=== PATIENT | male | born 1985 | race Caucasian/White ===

== ENCOUNTER → 2020-05-01 08:03 | Outpatient (CLI) | payer BC, SELFPAY ==
[2020-05-01 23:32] LABS: SARS-CoV-2 RNA PCR Negative
== END ==
PROVIDERS: PCP Family Medicine; Visit Provider Family Medicine
DX: Z20.822 Contact with and (suspected) exposure to COVID-19 (principal); J02.9 Acute pharyngitis, unspecified
CPT/HCPCS: C9803; U0003; U0005

== ENCOUNTER 2020-06-20 11:19 | Outpatient (CLI) | payer BC, SELFPAY ==
--- NOTE | ~2020-06-20 | CT_ITS ---
EXAMINATION: CTA chest PE protocol DATE: 06/20/2020 12:03 INDICATION: Shortness of breath. Tachycardia. TECHNIQUE: Computed tomography (CT) pulmonary angiogram of the chest was performed with 100 mL Omnipa que-350 intravenous contrast. Additional 3D reconstructions utilizing coronal maximum intensity proje ction (MIP) were performed. Automated exposure control and iterative reconstruction technique were em ployed. The dose-length product was 728.87 mGy-cm. COMPARISON: None FINDINGS: Adequate but suboptimal contrast opacification of the pulmonary arteries. There is mild streak artifa ct from dense contrast in the superior vena cava and right atrium. Mild scattered respiratory motion artifact. Overall this only mildly decreases sensitivity in the smaller subsegmental pulmonary arteri es. No pulmonary embolism. Several scattered bilateral small calcified pulmonary nodules consistent w ith old granulomatous disease. No pneumonia, pulmonary edema or other evident lung disease. No pleura l effusion or pneumothorax. Heart size is normal. No pericardial effusion. Thoracic aorta is normal i n caliber with no dissection. No pathologically enlarged thoracic lymphadenopathy. Visualized upper a bdomen is unremarkable. Mild thoracic spondylosis and multiple Schmorl's nodes throughout the mid to lower thoracic spine. IMPRESSION: 1. No pulmonary masses or other acute cardiopulmonary disease. Reviewed, dictated and finalized at location A.
--- NOTE | 2020-06-20 12:02 | ECG_ITS ---
Measurements Intervals [place] Rate: 72 P: 46 GA: 154 QRS: 51 QRSD: 94 T: 49 QT: 375 QTc: 412 Interpretive Statements SINUS RHYTHM NORMAL ECG Electronically Signed On 06-20-2020 12:12:43 CDT by Luther Allen D.O.
== END 2020-06-20 11:20 | disposition home or self-care (01) ==
PROVIDERS: PCP Family Medicine; Visit Provider Family Medicine
DX: R00.0 Tachycardia, unspecified (principal); R06.02 Shortness of breath
CPT/HCPCS: 71275; 93005; Q9967

== ENCOUNTER → 2020-09-08 06:30 | Outpatient (CLI) | payer BC, SELFPAY ==
[2020-09-08 21:20] LABS: SARS-CoV-2 RNA PCR Negative
== END ==
PROVIDERS: PCP Family Medicine; Visit Provider Family Medicine
DX: J06.9 Acute upper respiratory infection, unspecified (principal); Z20.822 Contact with and (suspected) exposure to COVID-19
CPT/HCPCS: C9803; U0003; U0005

== ENCOUNTER 2023-03-27 08:17 | Outpatient (CLI) | payer BC, SELFPAY ==
--- NOTE | 2023-03-31 18:15 | WPDHOMESLEEP ---
Sleep Study - Home Unattended Date of Study: 03/27/23 Ordering Provider: Cornelius Hoang MD Interpreting Provider: Niki Abdi, DO Home Sleep Study Type: Watch PAT Height: 1.7 m Weight: 107.501 kg Body Mass Index: 37.0 Neck Circumference (inches): 16.5 [place]: 3 Reason for Sleep Study Loud snoring. Started using a CPAP but no previous sleep study performed. Sleep History The patient is a 37-year-old male with GERD, hyperlipidemia and snoring treated with CPAP use since 2020 without formal sleep study that had a sleep study ordered by his primary care physician for evaluation of sleep apnea. The patient denies awakening from sleep short of breath. He denies awakening at night with heartburn, belching or cough. He constantly snores and is frequently loud enough others complain. He frequently has trouble sleeping when he has a cold. He denies waking up gasping for air throughout the night. He denies having breathing problems at night observed by himself or others. He denies sweating excessively at night. He denies having heart palpitations or irregular heartbeats during the night. He denies falling asleep during the day and while driving. He denies sleep paralysis, cataplexy and hypnagogic / hypnopompic hallucinations. He denies feeling afraid of going to sleep. He rarely has nightmares. He occasionally remembers his dreams. He rarely has thoughts racing through his mind. He denies feeling sad or depressed. He rarely has anxiety. He denies having muscular tension. He denies noticing parts of his body jerk. He denies kicking during the night. He denies having crawling and aching feelings in his legs and denies having leg pain during the night. Is denies grinding his teeth during sleep and denies awakening with morning jaw pain. He denies being bothered by pain during the day and denies being awakened by pain during the night. He denies waking up feeling stiff in the morning. He frequently wakes up with pain in his neck, spine and other joints. He goes to bed between 11 to 11:30 p.m. on weekdays and between 11:30 pm - 12:30 am on weekends. It takes him 5 minutes to fall asleep. He wakes up 5 times throughout the night when he does not use CPAP because his will wake him up due to snoring. He is able to fall back asleep immediately. He wakes up at 6:30 a.m. on weekdays and 7:00 a.m. on the weekends. He typically gets 6.5-7 hours of sleep per night. He will stay in bed 5-15 minutes after waking in the morning. He currently lives with his , father and 2 sons. He denies consuming caffeinated beverages within 2 hours of bedtime. He will occasionally engage in physical exercise before bedtime. He will read and watch television before falling asleep. He denies taking naps in the afternoon or the evening. He consumes 2 cups of caffeinated beverage per day. He denies tobacco, alcohol and recreational drug use PMFSH Past Medical History Medical History Acne Acute non-recurrent maxillary sinusitis BMI 38.0-38.9,adult COVID-19 (01/28/21) fully vaccinated. COVID symptoms starting 01/28/2021 with positive rapid home test 01/29/2021. Second episode starting 11/16/2022 with positive test on 11/17/2022. Diarrhea Encounter for screening for other viral diseases Encounter for wellness examination in adult Gastro-esophageal reflux disease without esophagitis Keratosis pilaris Mixed hyperlipidemia Obesity (BMI 30-39.9) Obstructive sleep apnea on CPAP (~2020) CPAP started empirically 2020 with no testing. Excellent compliance and good results. new machine, ResMed AirSense 10 with APAP 6-16 cm water pressure with Resmed medium AirFit N20 nasal mask 01/26/2023. Otitis externa of right ear (~10/27/22) Pharyngitis Plantar wart of left foot (~2021) 2 small warts plantar surface of the left midfoot with callus 02/25/2022. Shortness of breath (06/20/20) Pulmona
[2023-03-31 18:34] VITALS: BMI 37.0
== END 2023-03-30 08:21 | disposition home or self-care (01) ==
LOC: ANHCSM 08:17
PROVIDERS: PCP Family Medicine; Visit Provider Family Medicine
DX: G47.33 Obstructive sleep apnea (adult) (pediatric) (principal)
CPT/HCPCS: 95800

== ENCOUNTER 2023-04-16 08:51 | Outpatient (CLI) | payer BC, SELFPAY ==
--- NOTE | 2023-05-05 16:07 | WPDSLEEPSTUD ---
Sleep Study Date of Study: 04/16/23 Ordering Provider: Cornelius Hoang MD Interpreting Physician: Niki Abdi DO Sleep Study Type: CPAP Titration Height: 1.7 m Weight: 107.048 kg Body Mass Index: 36.9 Neck Circumference (inches): 17 [place]: 3 Reason for Sleep Study The patient had a WatchPAT home sleep test on 03/27/2023 that showed an overall AHI of 33.3 with desaturation down to 82%. Sleep History The patient is a 37-year-old male with GERD, hyperlipidemia and snoring treated with CPAP use since 2020 without formal sleep study that had a sleep study ordered by his primary care physician for evaluation of sleep apnea.? The patient denies awakening from sleep short of breath.? He denies awakening at night with heartburn, belching or cough.? He constantly snores and is frequently loud enough others complain.? He frequently has trouble sleeping when he has a cold.? He denies waking up gasping for air throughout the night.? He denies having breathing problems at night observed by himself or others.? He denies sweating excessively at night.? He denies having heart palpitations or irregular heartbeats during the night.? He denies falling asleep during the day and while driving.? He denies sleep paralysis, cataplexy and hypnagogic / hypnopompic hallucinations.? He denies feeling afraid of going to sleep.? He rarely has nightmares.? He occasionally remembers his dreams.? He rarely has thoughts racing through his mind.? He denies feeling sad or depressed.? He rarely has anxiety.? He denies having muscular tension.? He denies noticing parts of his body jerk.? He denies kicking during the night.? He denies having crawling and aching feelings in his legs and denies having leg pain during the night.? Is denies grinding his teeth during sleep and denies awakening with morning jaw pain.? He denies being bothered by pain during the day and denies being awakened by pain during the night.? He denies waking up feeling stiff in the morning.? He frequently wakes up with pain in his neck, spine and other joints.? He goes to bed between 11 to 11:30 p.m. on weekdays and between 11:30 pm - 12:30 am on weekends.? It takes him 5 minutes to fall asleep.? He wakes up 5 times throughout the night when he does not use CPAP because his will wake him up due to snoring.? He is able to fall back asleep immediately.? He wakes up at 6:30 a.m. on weekdays and 7:00 a.m. on the weekends.? He typically gets 6.5-7 hours of sleep per night.? He will stay in bed 5-15 minutes after waking in the morning.? He currently lives with his , father and 2 sons.? He denies consuming caffeinated beverages within 2 hours of bedtime.? He will occasionally engage in physical exercise before bedtime.? He will read and watch television before falling asleep.? He denies taking naps in the afternoon or the evening.? He consumes 2 cups of caffeinated beverage per day.? He denies tobacco, alcohol and recreational drug use. [facility] Past Medical History Medical History Acne Acute non-recurrent maxillary sinusitis BMI 38.0-38.9,adult COVID-19 (01/28/21) fully vaccinated. COVID symptoms starting 01/28/2021 with positive rapid home test 01/29/2021. Second episode starting 11/16/2022 with positive test on 11/17/2022. Diarrhea Encounter for screening for other viral diseases Encounter for wellness examination in adult Gastro-esophageal reflux disease without esophagitis Keratosis pilaris Mixed hyperlipidemia Obesity (BMI 30-39.9) Obstructive sleep apnea on CPAP (~2020) CPAP started empirically 2020 with no testing. Excellent compliance and good results. new machine, ResMed AirSense 10 with APAP 6-16 cm water pressure with Resmed medium AirFit N20 nasal mask 01/26/2023. Home sleep study 03/27/2023 with severe KAELA with AHI of 33.3 with a CSI of 2.5 with oxygen desaturation to 82%. Patient needs CPAP titration. Otitis externa of right ear (~0
[2023-05-05 16:16] VITALS: BMI 36.9
== END 2023-04-17 06:37 | disposition home or self-care (01) ==
LOC: ANHCSM 08:53
PROVIDERS: PCP Family Medicine; Visit Provider Family Medicine
DX: G47.33 Obstructive sleep apnea (adult) (pediatric) (principal); G47.31 Primary central sleep apnea
CPT/HCPCS: 95811